=== PATIENT | female | born 1985 | race Caucasian/White ===

== ENCOUNTER 2016-12-31 06:10 | Inpatient (IN) ==
[2016-12-31] MEDS ORDERED: METHYLERGONOVINE 0.2 MG/ML INJECTION IM PRN (06:20)
[2016-12-31] MEDS ORDERED: CARBOPROST 250 MCG/ML INJECTION IM PRN (06:20)
[2016-12-31] MEDS ORDERED: MAG-AL + SIM ORAL LIQUID 30ml PO PRN ×2 (06:20→12:28)
[2016-12-31] MEDS ORDERED: CALCIUM CARBONATE Chewable 500mg TABLET PO PRN ×2 (06:20→12:28)
[2016-12-31] MEDS ORDERED: LIDOCAINE 1% (10mg/ml) 2mL INJ PF SDV ID PRN (06:20)
[2016-12-31] MEDS ORDERED: OXYTOCIN DRIP 30 UNIT/500 ML ML IV PRN (06:20)
[2016-12-31] MEDS ORDERED: ACETAMINOPHEN 500 MG TABLET PO PRN ×2 (06:20→12:28)
[2016-12-31] MEDS ORDERED: D5LR 1,000 ML IV PRN (06:20)
[2016-12-31 06:34] VITALS: BMI 26.9
[2016-12-31] MEDS: LR 1,000 ML IV PRN ×2 (06:40→09:54)
--- NOTE | 2016-12-31 08:09 | Anesthesia Preoperative Report ---
Anesthesia Epidural/Spinal Rec - Date and Time Date: 12/31/16 Preoperative Diagnosis: Term induction Procedure: Labor Epidural Plan: Epidural - Vital Signs /Para: P:4 - Medictaions & Allergies Inpatient Medications: Current Medications Acetaminophen (Tylenol) 500 - 1,000 mg PO Q4H PRN PRN Reason: Pain Al Hydroxide/Mg Hydroxide (Maalox Plus) 30 ml PO Q3H PRN PRN Reason: Indigestion Calcium Carbonate (Tums) 500 - 1,000 mg PO Q2H PRN PRN Reason: Indigestion Carboprost Tromethamine (Hemabate) 250 mcg IM O PRN PRN Reason: .Downtime Dextrose/Lactated Ringer's (Dextrose 5%-Lactated Ringers) 1,000 mls @ 125 mls/ hr IV .Q8H PRN PRN Reason: Labor Last Admin: 12/31/16 07:20 Dose: 125 mls/hr Lactated Ringer's (Lactated Ringers) 1,000 mls @ 1,000 mls/hr IV .Q1H PRN PRN Reason: as directed Last Admin: 12/31/16 06:40 Dose: 1,000 mls/hr Oxytocin (Pitocin Drip) 30 unit in 500 mls @ 2 mls/hr IV .Q24H PRN; Protocol PRN Reason: Induction/Augmentation Last Admin: 12/31/16 07:00 Dose: 2 mls/hr Lidocaine HCl (Xylocaine-Mpf 1% Vial) 0.2 mg ID O PRN PRN Reason: IV Start Methylergonovine Maleate (Methergine) 0.2 mg IM O PRN Misoprostol (Cytotec) 800 mcg MS ONCE PRN Allergies/Adverse Reactions: Allergies Allergy/AdvReac Type Severity Reaction Status Date / Time No Known Drug Allergies Allergy Unknown Unverified 12/31/16 07:21 - Home Medications Home Medications: Home Medications Medication Instructions Recorded Confirmed Type Ascorbic Acid [Vitamin C] 1,000 mg DAILY 12/16/16 12/31/16 History Calcium Carbonate [Calcium] 1 tab PO DAILY 12/16/16 12/31/16 History Vits #93/Iron Fum/FA 1 each PO DAILY 12/16/16 12/31/16 History [ Formula Tablet] - Surgical History Anesthesia Reactions: None Hx Family Anesthesia Reaction: No History of Motion Sickness: No - Social History Smoking Status: Never smoker Second Hand Exposure: No Substance Use Type: does not use Alcohol Intake: never Alcohol Intake Frequency: does not drink Hx Chewing Tobacco Use: No - Pertinent Findings Lab Data: CBC and BMP 12/31/16 06:37 - Physical Exam Respiratory Exam: lungs clear, bilateral breath sounds equal Cardiovascular Exam: regular rate and rhythm, no murmur - Airway Assessment Mallampati Score: I TMD: 3 Fingerbreadths Neck Extension: good Overall Assessment: no airway concerns - ASA ASA Score: 2 - Discussion Discussion: Discussed risks/options/alternatives of anesthesia and questions answered. Patient consents. Nursing pain assessment noted. Anesthesia Discussion: spouse Attestation Statement: Prior to the delivery of any anesthetic medication, I examined the patient, developed the plan, obtained the patient's consent and discussed the risk and benefits of the procedure with the patient/guardian.
[2016-12-31] MEDS ORDERED: ONDANSETRON 4 MG/2 ML INJECTION IVP PRN (10:38)
[2016-12-31] MEDS ORDERED: ROPIVACAINE 1% 10MG/ML INJ 200 MG, SUFentanil 50 MCG in NS 100 ML EPI PRN (10:38)
[2016-12-31] MEDS ORDERED: DiphenhydrAMINE 50 MG/ML INJECTION IVP PRN (10:38)
[2016-12-31] MEDS ORDERED: NALOXONE 0.4 MG/ML INJECTION IVP PRN (10:38)
[2016-12-31] MEDS: OXYTOCIN DRIP 30 UNIT/500 ML ML IV SCH ×2 (11:45→23:19)
[2016-12-31] MEDS ORDERED: BENZOCAINE 20% SPRAY 0.5 ML MM ONE (12:28)
[2016-12-31] MEDS ORDERED: SALINE FLUSH 10ml SYRINGE IVF PRN (12:28)
[2016-12-31] MEDS ORDERED: HYDROCODONE/APAP 5mg/325mg TABLET PO PRN (12:28)
[2016-12-31] MEDS ORDERED: HYDROCORTISONE 2.5% CREAM 30gm RECTALLY PRN (12:28)
[2016-12-31] MEDS ORDERED: DiphenhydrAMINE 25 MG CAPSULE PO PRN (12:28)
--- NOTE | 2016-12-31 13:35 | Labor and Delivery Note ---
DATE: 12/31/2016 DIAGNOSES 1. 31-year-old white female, G5, P4 at 39.2 weeks gestational age. 2. Pitocin induction of labor for logistics. 3. Artificial rupture of membranes. 4. Epidural anesthesia. 5. Spontaneous vaginal delivery. 6. Female , 8/9 Apgars (Katelingenoveva Arceo) 3060grams. This is a patient of mine who was brought in for logistics induction this morning. Her cervix was initially 3/80/-3. Pitocin reached maximum of 20 milliunits per minute. AROM occurred at 08:24 a.m. time was 11:19 and placenta was 11:43 a.m. Pitocin was turned down to 10 and then later turned off because of earlies and variables. Patient delivered with three contractions. was bulb suctioned after delivery of the head and then again after delivery of the body. Cord was doubly clamped and cut after draining for a minute and 45 seconds. Infant was initially placed on the mother's abdomen. The placenta took some time to deliver but eventually delivered and was intact. There were no perineal lacerations. EBL was 300 mL. Maternal blood type is O+, rubella is immune and GBS is negative. At time of dictation, mother and infant are doing well. [facility]
[2016-12-31] MEDS: IBUPROFEN 800 MG TABLET PO PRN ×2 (14:10→23:17)
--- NOTE | 2016-12-31 16:54 | Anesthesia Postoperative Note ---
- Date and Time Date: 12/31/16 Time: 16:53 - Status Patient Participated in Evaluation: Patient Participated in Person Vital Signs: Temperature 97.9 F 12/31/16 16:00 Pulse Rate 61 12/31/16 16:00 Respiratory Rate 16 12/31/16 16:00 Blood Pressure 117/80 12/31/16 16:00 Pulse Oximetry 97 12/31/16 16:00 Oxygen Delivery Method Room Air Respiratory Function: Airway Patent Cardiovascular Function: Regular Pulse EKG Rhythm: Normal Sinus Rhythm Mental Status: Alert and Oriented Pain Intensity: 0 Hydration: Taking PO Fluids Complications During Recover: None Apparent - Follow-Up Instructions Instructions: Per Surgeon
[2017-01-01] MEDS: IBUPROFEN 800 MG TABLET PO PRN ×2 (07:37→15:53)
[2017-01-01] MEDS ORDERED: DOCUSATE CALCIUM 240 MG CAPSULE PO SCH (09:00)
--- NOTE | 2017-01-01 12:22 | OB/GYN Progress Note ---
OB-PP Progress Note - General PPD1 Maternal Group B Strep: Negative - Subjective Date: 01/01/17 Lochia: Minimal Pain: contolled Voiding: voiding Nausea or Vomiting Present: No - Objective Vital Signs: Last Vital Signs Temp 97.9 F 01/01/17 06:21 Pulse 71 01/01/17 06:21 Resp 16 01/01/17 06:21 BP 108/72 01/01/17 06:21 Pulse Ox 96 01/01/17 06:21 Urine Output: good General: alert and oriented Abdomen: fundus firm, non-tender Extremities: non-tender Edema: none - Assessment Assessment: SP, - Plan Plan: routine care Expected date of discharge: 01/02/17
--- NOTE | 2017-01-01 12:23 | Discharge Instructions ---
Discharge Plan - Med Rec/Dispo Prescriptions: New Docusate Calcium [Surfak] 240 mg PO DAILY #30 capsule Hydrocodone/APAP 5/325 [[place] 5/325] 1 - 2 tab PO Q4H PRN #20 tablet PRN Reason: Pain Ibuprofen [Motrin] 800 mg PO Q8H PRN #30 tablet PRN Reason: Pain No Action Vits #93/Iron Fum/FA [ Formula Tablet] 1 each PO DAILY Calcium Carbonate [Calcium] 1 tab PO DAILY Ascorbic Acid [Vitamin C] 1,000 mg DAILY
[2017-01-01 15:56] VITALS: RESP 16
[2017-01-02] MEDS: IBUPROFEN 800 MG TABLET PO PRN (00:29)
[2017-01-02 08:27] VITALS: BP 110/68; PULSE 68; TEMP 98; O2SAT 99
== END 2017-01-02 11:45 | disposition home or self-care (01) | DRG 775 ==
LOC: MC 06:10
PROVIDERS: ADMIT Obstetrics & Gynecology; ATTEND Obstetrics & Gynecology